=== PATIENT | female | born 1985 | race Caucasian/White ===

== ENCOUNTER 2023-11-09 12:55 | Outpatient (CLI) | payer OTHER, SELFPAY ==
--- NOTE | ~2023-11-09 | MM_ITS ---
EXAMINATION: MM screening tea BI w saira HISTORY: Screening TECHNIQUE: Craniocaudal and mediolateral oblique 3-D tomosynthesis images were obtained and synthetic 2-D images were generated. CAD analysis was submitted and interpreted. COMPARISON: No prior mammogram is available for comparison at this institution. BREAST PARENCHYMAL COMPOSITION: Not dense: There are scattered areas of fibroglandular density. FINDINGS: There is no evidence of suspicious mass, calcification, or architectural distortion to sugg est malignancy in either breast. There has been no suspicious interval change. IMPRESSION: 1. No mammographic evidence of malignancy. 2. Recommend routine screening mammography in one year. BI-RADS Category 1: Negative Reviewed, dictated and finalized at location B.
== END 2023-11-09 12:56 ==
PROVIDERS: PCP Internal Medicine; Visit Provider Nurse Practitioner
DX: Z12.31 Encounter for screening mammogram for malignant neoplasm of breast (principal)
CPT/HCPCS: 77063; 77067